=== PATIENT | male | born 1995 | race Caucasian/White ===

== ENCOUNTER 2017-09-16 14:53 | Emergency (ER) | payer OTHER ==
[2017-09-16 15:02] VITALS: BP 134/74
--- NOTE | 2017-09-16 15:08 | ER Document Report ---
HPI - HPI Patient complains to provider of: Injured back at work yesterday Onset: Yesterday Onset/Duration: Gradual Pain Level: 4 Context: 21-year-old male who works at [employer] in had to do extra heavy lifting due to fluttered room which involve bending and twisting of his back. But 1:30 in the afternoon he started having lower thoracic and lumbar back strain. When he stands up straight he feels a pinching. There is no saddle anesthesia or radiculopathy. Fever. No IV drug use. Associated Symptoms: None Exacerbated by: Movement Relieved by: Denies Similar symptoms previously: No Recently seen / treated by doctor: No - ROS ROS below otherwise negative: Yes Systems Reviewed and Negative: Yes All other systems reviewed and negative Past Medical History - General Information source: Patient - Social History Smoking Status: Never Smoker Frequency of alcohol use: None Drug Abuse: None Lives with: Spouse/Significant other Family History: Reviewed & Not Pertinent - Medical History Medical History: Negative Surgical Hx: Negative Vertical Provider Document - CONSTITUTIONAL Agree With Documented VS: Yes Exam Limitations: No Limitations - INFECTION CONTROL TRAVEL OUTSIDE OF THE [place] IN LAST 30 DAYS: No - HEENT HEENT: Normocephalic - NECK Neck: Supple - RESPIRATORY Respiratory: Breath Sounds Normal, No Respiratory Distress - CARDIOVASCULAR Cardiovascular: Regular Rate, Regular Rhythm - MUSCULOSKELETAL/EXTREMETIES Musculoskeletal/Extremeties: MAEW, FROM, Tender - lumbar and lower thoracic paraspinal muscles - NEURO Level of Consciousness: Awake, Alert Motor/Sensory: No Motor Deficit, No Sensory Deficit - DERM Integumentary: Warm, Dry, No Rash Course - Vital Signs Vital signs: Temp Pulse Resp BP Pulse Ox 98.3 F 76 18 134/74 H 98 09/16/17 15:00 09/16/17 15:00 09/16/17 15:00 09/16/17 15:00 09/16/17 15:00 Discharge - Discharge Clinical Impression: Thoracic and lumbar back strain Condition: Good Disposition: HOME, SELF-CARE Instructions: Warm Packs ([facility]), Low Back Pain ([facility]), Upper Back Strain ([facility]), Muscle Strain ([facility]), Acetaminophen, Ibuprofen (General) ([facility]) Additional Instructions: Warm compress Gentle motion Tylenol up to 4000 mg per day Motrin 800 mg 3 times a day for the inflammation Return to the emergency room for any worsening symptoms Modified work duty note Prescriptions: Ibuprofen 800 mg PO Q8HP PRN #30 tablet PRN Reason: Forms: Return to Work, Restricted Release
== END 2017-09-16 15:32 | disposition home or self-care (01) ==
LOC: ER 14:53
DX: S29.012A Strain of muscle and tendon of back wall of thorax, initial encounter (principal); S39.012A Strain of muscle, fascia and tendon of lower back, initial encounter; X50.0XXA Overexertion from strenuous movement or load, initial encounter; Y99.0 Civilian activity done for income or pay
CPT/HCPCS: 99283

== ENCOUNTER 2017-11-11 18:25 | Emergency (ER) | payer SELFPAY ==
[2017-11-11 18:32] VITALS: BP 149/73
[2017-11-11] MEDS ORDERED: IBUPROFEN 800 MG TABLET PO ONE (19:03)
[2017-11-11] MEDS ORDERED: SILVER SULFADIAZINE 1% CREAM 400 GM TP PRN (19:03)
--- NOTE | 2017-11-11 19:08 | ER Document Report ---
ED Burn/Smoke/Toxic Fumes - General Chief Complaint: Sunburn Stated Complaint: SUNBURN/SWOLLEN FEET Time Seen by Provider: 11/11/17 18:51 Mode of Arrival: Ambulatory Information source: Patient Notes: 21-year-old male presented ED for complaint of wick to bilateral lower extremities. He states he went to the beach without sunscreen 2 days ago and fell asleep on the beach. There is redness to both legs with no blistering noted. Patient is alert oriented ambulating with a even steady gait. Patient states that the pain is so bad in his legs that he feels like there is a hammock onto his legs when he stands on his feet. There is mild edema to both feet and ankles. TRAVEL OUTSIDE OF THE [place] IN LAST 30 DAYS: No - HPI Patient complains to provider of: Other - Sunburn Onset: Other - 2 days ago Where: Outdoors, Public place - Couch Quality of pain: Sharp, Throbbing Severity: Moderate Pain Level: 4 Context: Other - Sunburn Exposure to: Other - sunburn Associated Symptoms: Other - Sunburn both legs with pedal edema Other injuries: LLE, RLE - Related Data Allergies/Adverse Reactions: Egg Derived Allergy (Verified 11/11/17 18:26) Past Medical History - General Information source: Patient - Social History Smoking Status: Never Smoker Cigarette use (# per day): No Chew tobacco use (# tins/day): No Smoking Education Provided: No Frequency of alcohol use: Occasional Drug Abuse: None Occupation: [employer], [employer] out, [employer] school Lives with: Family Family History: Reviewed & Not Pertinent Patient has suicidal ideation: No Patient has homicidal ideation: No - Past Medical History Cardiac Medical History: Reports: None Pulmonary Medical History: Reports: None EENT Medical History: Reports: None Neurological Medical History: Reports: None Endocrine Medical History: Reports: None Renal/ Medical History: Reports: None Malignancy Medical History: Reports None GI Medical History: Reports: None Musculoskeltal Medical History: Reports None Skin Medical History: Reports None Psychiatric Medical History: Reports: Hx Bipolar Disorder, Hx Depression, Other - Insomnia Traumatic Medical History: Reports: None Infectious Medical History: Reports: None Surgical Hx: Negative Past Surgical History: Reports: None Review of Systems - Review of Systems Constitutional: No symptoms reported EENT: No symptoms reported Cardiovascular: No symptoms reported Respiratory: No symptoms reported Gastrointestinal: No symptoms reported Genitourinary: No symptoms reported Male Genitourinary: No symptoms reported Musculoskeletal: Ankle swelling Skin: Other - Sunburn to both lower extremities, first-degree with mild swelling to the ankle Hematologic/Lymphatic: No symptoms reported Neurological/Psychological: No symptoms reported Physical Exam - Vital signs Vitals: Temp Pulse Resp BP Pulse Ox 98.4 F 75 18 149/73 H 98 11/11/17 18:30 11/11/17 18:30 11/11/17 18:30 11/11/17 18:30 11/11/17 18:30 Interpretation: Normal - General General appearance: Appears well, Alert - HEENT Head: Normocephalic, Atraumatic Eyes: Normal Pupils: PERRL - Respiratory Respiratory status: No respiratory distress Chest status: Nontender Breath sounds: Normal Chest palpation: Normal - Cardiovascular Rhythm: Regular Heart sounds: Normal auscultation Murmur: No - Abdominal Inspection: Normal Distension: No distension Bowel sounds: Normal Tenderness: Nontender Organomegaly: No organomegaly - Back Back: Normal, Nontender - Extremities General upper extremity: Normal inspection, Nontender, Normal color, Normal ROM , Normal temperature General lower extremity: Normal inspection, Nontender, Normal color, Normal ROM , Normal temperature, Normal weight bearing. No: Lavon's sign - Neurological Neuro grossly intact: Yes Cognition: Normal Orientation: AAOx4 Keri Coma Scale Eye Opening: Spontaneous Keri Coma Scale Verbal: Oriented Keri Coma Scale Motor: Obeys Commands Shelton Coma Scale Total: 15 Speech: Normal Motor strength normal: LUE, RUE, LLE, RLE Sensory: Normal - Psychological Associated symptoms: Normal affect, Normal mood - Skin Skin Temperature: Warm Skin Moisture: Dry Skin Color: Normal Location of irregularity: Extremities - Sunburns to both lower extremities Course - Re-evaluation Re-evalutation: 11/11/17 19:31 Patient was treated with ibuprofen and Silvadene cream for first-degree wick sunburns to both lower extremities. Patient was instructed on staining caused by Silvadene to anything that it catches. Patient states that he understood and would like to have the Silvadene. - Vital Signs Vital signs: Temp Pulse Resp BP Pulse Ox 98.4 F 75 18 149/73 H 98 11/11/17 18:30 11/11/17 18:30 11/11/17 18:30 11/11/17 18:30 11/11/17 18:30 Discharge - Discharge Clinical Impression: Sunburn of first degree Condition: Stable Disposition: HOME, SELF-CARE Instructions: Family Physicians / Practices Additional Instructions: Sunburn Sunburn is caused by prolonged exposure to ultraviolet light. This can be natural sunlight or a tanning bed. Your symptoms may include redness or blistering of the skin, fatigue, weakness, and chills that last two or three days. Treatment includes antiinflammatory pain medication, rest, cooling baths, and moisturizing skin cream. Occasionally, cortisone-type medicine is required for severe sunburns. Antihistamines may be helpful if itching is severe as you heal. You should avoid any exposure to ultraviolet light for the next week or two so that further skin damage can be avoided. In the future, you should use sunscreens. Frequent or prolonged ultraviolet light exposure can cause premature skin aging, skin cancers, and wrinkles. Call the doctor if you are not improving in two or three days. Report any drainage, increasing swelling, fever, chills, or other signs of infection. Silvadene Cream Silvadene is very effective against the germs that cause infection within the skin. It is used to prevent infection in burn injuries. Apply the medicine once or twice a day, as prescribed, for one week, or longer if your doctor has advised it. Stop the medicine and call your doctor if you develop large blisters, severe itching, increasing pain, swelling, fever, or spreading redness. Ibuprofen Ibuprofen is an excellent, safe drug for pain control. In addition, it has potent antiinflammatory effects which are beneficial, especially in the treatment of injuries, arthritis, or tendonitis. It's best to take ibuprofen with food. Persons with ulcer disease or allergy to aspirin should notify their physician of this before taking ibuprofen. Take the medication exactly as prescribed. Don't take additional doses unless instructed to do so by your doctor. If you develop wheezing, shortness of breath, hives, faintness, stomach pain, vomiting, or dark black stools, return for re-evaluation at once. Elevate the Injury Because of the nature of your injury, elevation will be helpful to reduce swelling. This also reduces infection risk in wounds. Keep the injury up above the level of your heart for at least the next 48 hours (or longer if the physician recommends it). FOLLOW-UP CARE: If you have been referred to a physician for follow-up care, call the physician s office for an appointment as you were instructed or within the next two days. If you experience worsening or a significant change in your symptoms, notify the physician immediately or return to the Emergency Department at any time for re-evaluation. Forms: Elevated Blood Pressure, Return to Work
[2017-11-11] MEDS ORDERED: SILVER SULFADIAZINE 1% CREAM 50 GM ONE (19:14)
== END 2017-11-11 19:20 | disposition home or self-care (01) ==
LOC: ER 18:25
DX: L55.0 Sunburn of first degree (principal); Z91.012 Allergy to eggs
CPT/HCPCS: 99282

== ENCOUNTER 2017-12-25 13:32 | Emergency (ER) | payer SELFPAY ==
[2017-12-25 13:57] VITALS: BP 137/63
--- NOTE | 2017-12-25 14:00 | ER Document Report ---
HPI - HPI Pain Level: 2 <OLIVER CARPENTER - Last Filed: 12/25/17 14:00> - HPI Patient complains to provider of: Sore throat Onset: Yesterday Onset/Duration: Gradual Severity: Moderate Notes: Chief complaint: Sore throat History of complain:( obtained from----patient) 22 years old male with history of asthma presents today with 2 day history of runny nose sore throat cough coughing up yellow-green sputum. And also had some wheezing on and off. Hearing some popping sound in the ears. Onset: Gradual Duration: Continuous Severity: Moderate Quality: Dull Context: Exacerbating factor and relieving factors: None REVIEW OF SYSTEMS: CONSTITUTIONAL : Denies fever, chills, or sweats. Denies recent illness. EENT: Denies eye, ear, throat, or mouth pain or symptoms. Denies nasal or sinus congestion or discharge. Denies throat, tongue, or mouth swelling or difficulty swallowing. CARDIOVASCULAR: Denies chest pain. Denies palpitations or racing or irregular heart beat. Denies ankle edema. RESPIRATORY: As per history of complain. Denies shortness of breath, difficulty breathing. GASTROINTESTINAL: Denies distention. Denies nausea, vomiting, or diarrhea. Denies blood in vomitus, stools, or per rectum. Denies black, tarry stools. Denies constipation. GENITOURINARY: Denies difficulty urinating, painful urination, burning, frequency, blood in urine, or discharge. FEMALE GENITOURINARY: Denies vaginal bleeding, heavy or abnormal periods, irregular periods. Denies vaginal discharge or odor. MUSCULOSKELETAL: Denies back or neck pain or stiffness. Denies joint pain or swelling. SKIN: Denies rash, lesions or sores. HEMATOLOGIC : Denies easy bruising or bleeding. LYMPHATIC: Denies swollen, enlarged glands. NEUROLOGICAL: Denies confusion or altered mental status. Denies passing out or loss of consciousness. Denies dizziness or lightheadedness. Denies headache. Denies weakness or paralysis or loss of use of either side. Denies problems with gait or speech. Denies sensory loss, numbness, or tingling. Denies seizures. PSYCHIATRIC: Denies anxiety or stress. Denies depression, suicidal ideation, or homicidal ideation. ALL OTHER SYSTEMS REVIEWED AND NEGATIVE. PHYSICAL EXAMINATION: GENERAL: Well-appearing, well-nourished and in no acute distress. HEAD: Atraumatic, normocephalic. EYES: Pupils equal round and reactive to light, extraocular movements intact, conjunctiva are normal. ENT: Nares patent, oropharynx erythematous without exudates. Moist mucous membranes. Tympanic membrane slightly erythematous on the right side NECK: Normal range of motion, supple without lymphadenopathy LUNGS: Breath breath sounds are diminished on both sides of the lung field. Bilaterally and equal. No wheezes rales or rhonchi. HEART: Regular rate and rhythm without murmurs ABDOMEN: Soft, nontender, nondistended abdomen. No guarding, no rebound. No masses appreciated. Examination of genitals-deferred Musculoskeletal: Normal range of motion, no pitting or edema. No cyanosis. NEUROLOGICAL: Cranial nerves grossly intact. Normal speech, normal gait. Normal sensory, motor exams PSYCH: Normal mood, normal affect. SKIN: Warm, Dry, normal turgor, no rashes or lesions noted. Dictation was performed using [employer] voice recognition software - [employer] Notes: Dictated - DERM Notes: Dictated <SUZETTE TRISTAN - Last Filed: 12/25/17 14:19> Past Medical History - Social History Family History: Reviewed & Not Pertinent Renal/ Medical History: Denies: Hx Peritoneal Dialysis Psychiatric Medical History: Reports: Hx Bipolar Disorder, Hx Depression <OLIVER CARPENTER - Last Filed: 12/25/17 14:00> - General Information source: Patient - Social History Smoking Status: Never Smoker Cigarette use (# per day): No Chew tobacco use (# tins/day): No Smoking Education Provided: No Frequency of alcohol use: Rare Drug Abuse: None Lives with: Alone, Family <SUZETTE TRISTAN - Last Filed: 12/25/17 14:19> Vertical Provider Document - INFECTION CONTROL TRAVEL OUTSIDE OF THE [place] IN LAST 30 DAYS: No <OLIVER CARPENTER - Last Filed: 12/25/17 14:00> - CONSTITUTIONAL Notes: Dictated <SUZETTE TRISTAN - Last Filed: 12/25/17 14:19> Course - Vital Signs Vital signs: Temp Pulse Resp BP Pulse Ox 98.2 F 78 18 137/63 H 97 12/25/17 13:55 12/25/17 13:55 12/25/17 13:55 12/25/17 13:55 12/25/17 13:55 <OLIVER CARPENTER - Last Filed: 12/25/17 14:00> - Re-evaluation Re-evalutation: 12/25/17 14:14 Given bronchodilator treatment - Vital Signs Vital signs: Temp Pulse Resp BP Pulse Ox 98.2 F 78 18 137/63 H 97 12/25/17 13:55 12/25/17 13:55 12/25/17 13:55 12/25/17 13:55 12/25/17 13:55 <SUZETTE TRISTAN - Last Filed: 12/25/17 14:19> Discharge <OLIVER CARPENTER - Last Filed: 12/25/17 14:00> <SUZETTE TRISTAN - Last Filed: 12/25/17 14:19> - Discharge Clinical Impression: Asthmatic bronchitis Qualifiers: Asthma severity: moderate Asthma persistence: persistent Asthma complication type: uncomplicated Qualified Code(s): J45.40 - Moderate persistent asthma, uncomplicated Pharyngitis Qualifiers: Pharyngitis/tonsillitis etiology: unspecified etiology Qualified Code(s): J02.9 - Acute pharyngitis, unspecified Condition: Fair Disposition: HOME, SELF-CARE Instructions: Sore Throat ([facility]), Asthma ([facility]) Prescriptions: Albuterol Sulfate [Proair HFA] 1 - 2 puff IH Q4 PRN #1 inhaler PRN Reason: Azithromycin [Zithromax Tri-Victor Manuel] 500 mg PO DAILY #5 tablet Prednisone 5 mg PO ASDIR #1 tab.ds.pk
[2017-12-25] MEDS ORDERED: IPRATROPIUM/ALBUTEROL 0.5-2.5 MG/3 ML AMPUL NEB ONE (14:09)
--- NOTE | 2017-12-25 21:14 | ER Document Report ---
ED General - General Chief Complaint: Sore Throat Stated Complaint: COUGH,SORE THROAT Time Seen by Provider: 12/25/17 14:00 Mode of Arrival: Ambulatory Notes: Chief complaint: Sore throat History of complain:( obtained from----patient) 23 years old male with a history of asthma presents today with 2 day history of runny nose sore throat cough coughing up yellow-green sputum. Also had some wheezing on and off. Any earache. Onset: As above Duration: Last few days Severity: Moderate Quality: Noncontributory Context: Possible URI Exacerbating factor and relieving factors: Coughing REVIEW OF SYSTEMS: CONSTITUTIONAL : Denies fever, chills, or sweats. Denies recent illness. EENT: Denies eye, ear, throat, or mouth pain or symptoms. Denies nasal or sinus congestion or discharge. Denies throat, tongue, or mouth swelling or difficulty swallowing. CARDIOVASCULAR: Denies chest pain. Denies palpitations or racing or irregular heart beat. Denies ankle edema. RESPIRATORY: Denies cough, cold, or chest congestion. Denies shortness of breath, difficulty breathing, or wheezing. GASTROINTESTINAL: Denies distention. Denies nausea, vomiting, or diarrhea. Denies blood in vomitus, stools, or per rectum. Denies black, tarry stools. Denies constipation. GENITOURINARY: Denies difficulty urinating, painful urination, burning, frequency, blood in urine, or discharge. FEMALE GENITOURINARY: Denies vaginal bleeding, heavy or abnormal periods, irregular periods. Denies vaginal discharge or odor. MUSCULOSKELETAL: Denies back or neck pain or stiffness. Denies joint pain or swelling. SKIN: Denies rash, lesions or sores. HEMATOLOGIC : Denies easy bruising or bleeding. LYMPHATIC: Denies swollen, enlarged glands. NEUROLOGICAL: Denies confusion or altered mental status. Denies passing out or loss of consciousness. Denies dizziness or lightheadedness. Denies headache. Denies weakness or paralysis or loss of use of either side. Denies problems with gait or speech. Denies sensory loss, numbness, or tingling. Denies seizures. PSYCHIATRIC: Denies anxiety or stress. Denies depression, suicidal ideation, or homicidal ideation. ALL OTHER SYSTEMS REVIEWED AND NEGATIVE. PHYSICAL EXAMINATION: GENERAL: Well-appearing, well-nourished and in no acute distress. HEAD: Atraumatic, normocephalic. EYES: Pupils equal round and reactive to light, extraocular movements intact, conjunctiva are normal. ENT: Nares patent, oropharynx clear without exudates. Moist mucous membranes. NECK: Normal range of motion, supple without lymphadenopathy LUNGS: Breath sounds clear to auscultation bilaterally and equal. Bilateral mild wheezing expiratory wheezes rales or rhonchi. HEART: Regular rate and rhythm without murmurs ABDOMEN: Soft, nontender, nondistended abdomen. No guarding, no rebound. No masses appreciated. Examination of genitals-deferred Musculoskeletal: Normal range of motion, no pitting or edema. No cyanosis. NEUROLOGICAL: Cranial nerves grossly intact. Normal speech, normal gait. Normal sensory, motor exams PSYCH: Normal mood, normal affect. SKIN: Warm, Dry, normal turgor, no rashes or lesions noted. Dictation was performed using [employer] voice recognition software TRAVEL OUTSIDE OF THE [place] IN LAST 30 DAYS: No - Related Data Allergies/Adverse Reactions: Egg Derived Allergy (Verified 12/25/17 13:33) Past Medical History - General Information source: Patient - Social History Smoking Status: Never Smoker Cigarette use (# per day): No Chew tobacco use (# tins/day): No Frequency of alcohol use: Social Drug Abuse: None Lives with: Alone, Family Family History: Reviewed & Not Pertinent Patient has suicidal ideation: No Patient has homicidal ideation: No Renal/ Medical History: Denies: Hx Peritoneal Dialysis Psychiatric Medical History: Reports: Hx Bipolar Disorder, Hx Depression Review of Systems - Review of Systems Notes: Dictated Physical Exam - Vital signs Vitals: Temp Pulse Resp BP Pulse Ox 98.2 F 78 18 137/63 H 97 12/25/17 13:55 12/25/17 13:55 12/25/17 13:55 12/25/17 13:55 12/25/17 13:55 - Notes Notes: Dictated Course - Vital Signs Vital signs: Temp Pulse Resp BP Pulse Ox 98.2 F 78 18 137/63 H 97 12/25/17 13:55 12/25/17 13:55 12/25/17 13:55 12/25/17 13:55 12/25/17 13:55 Discharge - Discharge Clinical Impression: Asthmatic bronchitis Qualifiers: Asthma severity: moderate Asthma persistence: persistent Asthma complication type: uncomplicated Qualified Code(s): J45.40 - Moderate persistent asthma, uncomplicated Pharyngitis Qualifiers: Pharyngitis/tonsillitis etiology: unspecified etiology Qualified Code(s): J02.9 - Acute pharyngitis, unspecified Condition: Fair Disposition: HOME, SELF-CARE Instructions: Asthma ([facility]), Sore Throat ([facility]) Prescriptions: Albuterol Sulfate [Proair HFA] 1 - 2 puff IH Q4 PRN #1 inhaler PRN Reason: Azithromycin [Zithromax Tri-Victor Manuel] 500 mg PO DAILY #5 tablet Prednisone 5 mg PO ASDIR #1 tab.ds.pk Forms: Return to Work
== END 2017-12-25 14:37 | disposition home or self-care (01) ==
LOC: ER 13:32
DX: J45.40 Moderate persistent asthma, uncomplicated (principal); J02.9 Acute pharyngitis, unspecified; R05 Cough; R09.89 Other specified symptoms and signs involving the circulatory and respiratory systems
CPT/HCPCS: 94640; 99282; J7620

== ENCOUNTER 2018-05-16 14:33 | Emergency (ER) | payer SELFPAY ==
[2018-05-16 14:51] VITALS: BP 136/69
--- NOTE | 2018-05-16 15:04 | ER Document Report ---
HPI - HPI Patient complains to provider of: Toe injury Time Seen by Provider: 05/16/18 14:55 Onset: This afternoon Onset/Duration: Sudden Quality of pain: Achy Pain Level: 3 Context: Patient reports that her 40 pound gait was dropped on his left great toe. Patient was wearing boots at the time but they were not steel toe boots. Patient complains of left great toe pain and swelling. Associated Symptoms: Other - Toe injury Exacerbated by: Movement, Walking Relieved by: Denies Similar symptoms previously: No Recently seen / treated by doctor: No - ROS ROS below otherwise negative: Yes Systems Reviewed and Negative: Yes All other systems reviewed and negative - CONSTITUTIONAL Constitutional: DENIES: Fever - GASTROINTESTINAL Gastrointestinal: DENIES: Nausea - MUSCULOSKELETAL Musculoskeletal: REPORTS: Extremity pain, Swelling - DERM Skin Color: Ecchymosis Past Medical History - General Information source: Patient - Social History Smoking Status: Current Some Day Smoker Smoking Education Provided: Yes Frequency of alcohol use: None Drug Abuse: None Occupation: [employer] Family History: Reviewed & Not Pertinent Renal/ Medical History: Denies: Hx Peritoneal Dialysis Psychiatric Medical History: Reports: Hx Bipolar Disorder, Hx Depression Surgical Hx: Negative Vertical Provider Document - CONSTITUTIONAL Agree With Documented VS: Yes Exam Limitations: No Limitations General Appearance: WD/WN, No Apparent Distress - INFECTION CONTROL TRAVEL OUTSIDE OF THE [place] IN LAST 30 DAYS: No - HEENT HEENT: Atraumatic, Normocephalic - NECK Neck: Normal Inspection - RESPIRATORY Respiratory: No Respiratory Distress - CARDIOVASCULAR Pulses: Normal: Dorsalis pedis - MUSCULOSKELETAL/EXTREMETIES Musculoskeletal/Extremeties: MAEW, Tender - left great toe pain - NEURO Level of Consciousness: Awake, Alert, Appropriate Motor/Sensory: No Motor Deficit - DERM Integumentary: Warm, Dry Notes: small patchy area of ecchymosis note to left gr toe nail Course - Re-evaluation Re-evalutation: 05/16/18 15:02 offered pt trephination and pain medication, pt declined both options 05/16/18 Patient foot is too large for a postop shoe, PCT to make a molded posterior ankle splint for immobilization purposes - Vital Signs Vital signs: Temp Pulse Resp BP Pulse Ox 98.1 F 85 16 136/69 H 96 05/16/18 14:50 05/16/18 14:50 05/16/18 14:50 05/16/18 14:50 05/16/18 14:50 - Diagnostic Test Radiology reviewed: Pending, Image reviewed Procedures - Immobilization Left Foot Pre-Proc Neuro Vasc Exam: Normal Immobilizer type: Posterior ankle Performed by: PCT Post-Proc Neuro Vasc Exam: Normal Alignment checked and good: Yes Discharge - Discharge Clinical Impression: Toe contusion Qualifiers: Encounter type: initial encounter Toe: great toe Damage to nail status: without damage Laterality: left Qualified Code(s): S90.112A - Contusion of left great toe without damage to nail, initial encounter Hematoma, subungual, great toe, left Qualifiers: Encounter type: initial encounter Qualified Code(s): S90.212A - Contusion of left great toe with damage to nail, initial encounter Condition: Stable Disposition: HOME, SELF-CARE Instructions: Acetaminophen, Contusion ([facility]), Use of [id number]-Eldqasd Ibuprofen ([facility]), Ice & Elevation ([facility]), Post-Op Shoe ([facility]), Subungual Hematoma ( [facility]) Additional Instructions: return as needed for any new or worsening symptoms follow up with orthopedics for any persistent pain or problems Forms: Smoking Cessation Education, Return to Work Referrals: [facility]) [Provider Group] - Follow up as needed
--- NOTE | 2018-05-16 15:27 | RADIOLOGY REPORT (SQ) ---
EXAM DESCRIPTION: TOE LEFT COMPLETED DATE/TIME: 05/16/2018 3:17 pm REASON FOR STUDY: dropped 40lb gate on L gr toe COMPARISON: None. NUMBER OF VIEWS: Three views. TECHNIQUE: AP, lateral, and oblique images acquired of the left first toe. LIMITATIONS: None. FINDINGS: MINERALIZATION: Normal. BONES: No acute fracture or dislocation. No worrisome bone lesions. JOINTS: No effusions. SOFT TISSUES: No soft tissue swelling. No foreign body. OTHER: No other significant finding. IMPRESSION: 1. NEGATIVE STUDY OF THE LEFT TOE. COMMENT: SITE OF TRAUMA/COMPLAINT MARKED/STAMP COMPLETED: YES. TECHNICAL DOCUMENTATION: JOB ID: [id number] [employer]- All Rights Reserved Reading location - IP/workstation name: [email or web address]
== END 2018-05-16 16:08 | disposition home or self-care (01) ==
LOC: ER 14:33
DX: S90.212A Contusion of left great toe with damage to nail, initial encounter (principal); W20.8XXA Other cause of strike by thrown, projected or falling object, initial encounter; F17.200 Nicotine dependence, unspecified, uncomplicated
CPT/HCPCS: 99283

== ENCOUNTER 2018-05-28 15:14 | Emergency (ER) | payer SELFPAY ==
[2018-05-28] MEDS ORDERED: CEFTRIAXONE INJ 250 MG VIAL IM ONE (17:03)
[2018-05-28 17:04] LABS: AMORPHOUS SEDIMENT,URINE 1+ /HPF; APPEARANCE,URINE TURBID; BILIRUBIN,URINE NEGATIVE (NEGATIVE); COLOR,URINE YELLOW; GLUCOSE, URINE NEGATIVE (NEGATIVE); KETONES,URINE NEGATIVE (NEGATIVE); LEUKOCYTE ESTERASE,URINE NEGATIVE (NEGATIVE); NITRITE,URINE NEGATIVE (NEGATIVE); PROTEIN,URINE NEGATIVE (NEGATIVE); URINE SPECIFIC GRAVITY 1.018; UROBILINOGEN,URINE NEGATIVE mg/dL (<2.0)
[2018-05-28] MEDS ORDERED: AZITHROMYCIN 250 MG TABLET PO ONE (17:04)
[2018-05-28] MEDS ORDERED: LIDOCAINE 1% INJ-PF (10 MG/ML) 30 ML SDV INJ ONE (17:09)
--- NOTE | 2018-05-28 17:29 | ER Document Report ---
HPI - HPI Time Seen by Provider: 05/28/18 16:12 Pain Level: Denies Notes: Patient is an otherwise healthy 22-year-old male who presents with chief complaint of possible STD exposure. Patient reports his partner told him that she was diagnosed and treated for chlamydia. Patient denies any dysuria or penile discharge. - CONSTITUTIONAL Constitutional: DENIES: Fever, Chills - EENT EENT: DENIES: Sore Throat, Ear Pain, Eye problems - NEURO Neurology: DENIES: Headache, Weakness, Vision blurred, Dizzinesss / Vertigo - CARDIOVASCULAR Cardiovascular: DENIES: Chest pain - RESPIRATORY Respiratory: DENIES: Trouble Breathing, Coughing - GASTROINTESTINAL Gastrointestinal: DENIES: Abdominal Pain, Black / Bloody Stools - URINARY Urinary: REPORTS: Dysuria - STD exposure. DENIES: Urgency, Frequency - MUSCULOSKELETAL Musculoskeletal: DENIES: Extremity pain Past Medical History - General Information source: Patient - Social History Smoking Status: Never Smoker Frequency of alcohol use: None Drug Abuse: None Family History: Reviewed & Not Pertinent Patient has suicidal ideation: No Patient has homicidal ideation: No Renal/ Medical History: Denies: Hx Peritoneal Dialysis Psychiatric Medical History: Reports: Hx Bipolar Disorder, Hx Depression Surgical Hx: Negative - Immunizations Immunizations up to date: Yes Vertical Provider Document - CONSTITUTIONAL Notes: PHYSICAL EXAMINATION: GENERAL: Well-appearing, well-nourished and in no acute distress. HEAD: Atraumatic, normocephalic. EYES: Pupils equal round extraocular movements intact, conjunctiva are normal. ENT: Nares patent NECK: Normal range of motion LUNGS: No respiratory distress Musculoskeletal: Normal range of motion NEUROLOGICAL: Normal speech, normal gait. PSYCH: Normal mood, normal affect. SKIN: Warm, Dry, normal turgor, no rashes or lesions noted. - INFECTION CONTROL TRAVEL OUTSIDE OF THE [place] IN LAST 30 DAYS: No Course - Re-evaluation Re-evalutation: Patient treated with 1 g of azithromycin and 250 mg of Rocephin IM. Will call patient if chlamydia or gonorrhea testing is positive. 05/28/18 20:21 Patient notified of positive chlamydia result. - Vital Signs Vital signs: Temp Pulse Resp BP Pulse Ox 98.2 F 100 18 140/86 H 100 05/28/18 15:17 05/28/18 15:17 05/28/18 15:17 05/28/18 15:17 05/28/18 15:17 Discharge - Discharge Clinical Impression: STD exposure Condition: Stable Disposition: HOME, SELF-CARE Additional Instructions: You were treated for exposure to chlamydia and gonorrhea. Your lab results are still pending. We will call you in a few hours if they are positive. Please practice safe sex for at least 7-10 days. Make sure your partner gets the appropriate treatment as well.
[2018-05-28 18:03] VITALS: BP 132/68
[2018-05-28 18:17] LABS: CHLAM PCR DETECTED (NOT DETECT); GON PCR NOT DETECTED (NOT DETECT)
== END 2018-05-28 18:04 | disposition home or self-care (01) ==
LOC: ER 15:14
DX: Z20.2 Contact with and (suspected) exposure to infections with a predominantly sexual mode of transmission (principal)
CPT/HCPCS: 99283; 96372; 81001; 87491; 87591; J3490; J0696